=== PATIENT | male | born 1950 | race Two or more races ===

== ENCOUNTER 2017-09-18 15:19 | Outpatient (CLI) | payer OTHER | END 2017-09-18 15:43 | disposition home or self-care (01) | LOC: SONOGRAMA 15:19 | DX: N40.1 Benign prostatic hyperplasia with lower urinary tract symptoms (principal); Z87.442 Personal history of urinary calculi; E78.2 Mixed hyperlipidemia; Z12.5 Encounter for screening for malignant neoplasm of prostate ==

== ENCOUNTER 2017-09-18 15:25 | Outpatient (CLI) | payer OTHER | END 2017-09-18 15:35 | disposition home or self-care (01) | LOC: RAD 15:25 | DX: N40.1 Benign prostatic hyperplasia with lower urinary tract symptoms (principal); Z87.442 Personal history of urinary calculi; E78.1 Pure hyperglyceridemia; Z12.5 Encounter for screening for malignant neoplasm of prostate ==

== ENCOUNTER 2018-06-17 12:24 | Outpatient (CLI) | payer OTHER | END 2018-06-17 12:25 | disposition home or self-care (01) | LOC: RAD 12:24 | DX: N40.1 Benign prostatic hyperplasia with lower urinary tract symptoms (principal); Z87.442 Personal history of urinary calculi; E78.2 Mixed hyperlipidemia; Z12.5 Encounter for screening for malignant neoplasm of prostate ==

== ENCOUNTER → 2019-01-02 | Outpatient (CLI) | payer OTHER | END | disposition home or self-care (01) | LOC: MAMO-SONO 09:45 → SONOGRAMA 09:50 | DX: N40.1 Benign prostatic hyperplasia with lower urinary tract symptoms (principal); N41.1 Chronic prostatitis; R74.8 Abnormal levels of other serum enzymes; N20.0 Calculus of kidney ==

== ENCOUNTER 2020-06-28 08:56 | Outpatient (CLI) | payer OTHER | END 2020-06-28 09:04 | disposition home or self-care (01) | LOC: NUCLEAR 08:56 | DX: I65.23 Occlusion and stenosis of bilateral carotid arteries (principal) ==

== ENCOUNTER 2020-12-02 05:58 | Day surgery (SDC) | payer OTHER | END 2020-12-02 09:50 | disposition home or self-care (01) | LOC: AMB-ENDOS 05:58 | PROVIDERS: ATTEND Colon & Rectal Surgery | DX: D12.0 Benign neoplasm of cecum (principal); D12.5 Benign neoplasm of sigmoid colon; K64.2 Third degree hemorrhoids; Z20.822 Contact with and (suspected) exposure to COVID-19 ==

== ENCOUNTER 2021-03-22 12:29 | Outpatient (CLI) | payer OTHER | END 2021-03-22 12:40 | disposition home or self-care (01) | LOC: RAD 12:29 | PROVIDERS: ATTEND Internal Medicine Cardiovascular Disease | DX: M79.644 Pain in right finger(s) (principal); M79.641 Pain in right hand ==

== ENCOUNTER 2021-05-31 13:07 | Outpatient (CLI) | payer OTHER | END 2021-05-31 13:17 | disposition home or self-care (01) | LOC: SONOGRAMA 13:07 | PROVIDERS: ATTEND Internal Medicine Endocrinology, Diabetes & Metabolism | DX: E04.1 Nontoxic single thyroid nodule (principal) ==

== ENCOUNTER 2023-01-11 12:39 | Outpatient (CLI) | payer OTHER | END 2023-01-11 12:45 | disposition home or self-care (01) | LOC: RAD 12:39 | PROVIDERS: ATTEND Internal Medicine | DX: J33.8 Other polyp of sinus (principal); J34.1 Cyst and mucocele of nose and nasal sinus ==

== ENCOUNTER 2024-06-29 13:00 | Outpatient (CLI) | payer OTHER | END 2024-06-29 13:06 | disposition home or self-care (01) | LOC: RAD 13:00 | PROVIDERS: ATTEND Colon & Rectal Surgery | DX: K92.1 Melena (principal); K64.2 Third degree hemorrhoids ==

== ENCOUNTER 2024-10-15 13:57 | Outpatient (CLI) | payer OTHER | END 2024-10-15 14:02 | disposition home or self-care (01) | LOC: RAD 13:57 | PROVIDERS: ATTEND Colon & Rectal Surgery | DX: K92.1 Melena (principal); K64.2 Third degree hemorrhoids; Z01.818 Encounter for other preprocedural examination ==

== ENCOUNTER 2024-11-04 10:12 | Day surgery (SDC) | payer OTHER ==
[2024-10-27 13:37] VITALS: BP 137/79
[~2024-11-04] VITALS: Ht 182.9 cm; Wt 5.0 kg
[~2024-11-04 10:12] MED LIST: ARICEPT10 MG PO; ELIQUIS5 MG PO; NORVASC5 MG PO; RESTORIL30 M1 PO; SEROQUEL50 MG PO; TOPROL XL25 M1 PO
[2024-11-04] MEDS ORDERED: CEFTRIAXONE SODIUM 2,000 MG VIAL ONE (11:45)
[2024-11-04] MEDS ORDERED: METRONIDAZOLE/SODIUM CHLORIDE 500 MG/100 ML PIGGYBACK IV ONE (11:46)
[2024-11-04] MEDS ORDERED: DIBUCAINE 30 GM TUBE ONE (12:19)
[2024-11-04] MEDS ORDERED: HEMOSTATIC MATRIX 1 KIT KIT TOP ONE (12:19)
[2024-11-04] MEDS ORDERED: POVIDONE-IODINE 118 ML BOTT TOP ONE (12:20)
[2024-11-04] MEDS ORDERED: BUPIVACAINE HCL/MPF 0.5% 30ML VIAL ONE (12:20)
== END 2024-11-04 18:35 | disposition home or self-care (01) ==
LOC: CIR.AMB 10:12
PROVIDERS: ATTEND Colon & Rectal Surgery
DX: K64.2 Third degree hemorrhoids (principal); K64.4 Residual hemorrhoidal skin tags; Z91.041 Radiographic dye allergy status; I10 Essential (primary) hypertension